=== PATIENT | male | born 1995 | race Caucasian/White ===

== ENCOUNTER → 2019-06-08 12:16 | Outpatient (CLI) | payer BC, SELFPAY ==
[2019-06-08 15:21] LABS: Influenza A - CEPHEID Flu A NEGATIVE (NEGATIVE); Influenza B - CEPHEID Flu B NEGATIVE (NEGATIVE)
[2019-06-10 20:36] LABS: COVID19 Sendout Not Detected (Not Detected)
== END ==
PROVIDERS: Visit Provider Registered Nurse
DX: R68.89 Other general symptoms and signs (principal)
CPT/HCPCS: 87502; 87635

== ENCOUNTER → 2019-11-05 15:50 | Outpatient (CLI) | payer BC, SELFPAY | PROVIDERS: PCP Registered Nurse Diabetes Educator; Visit Provider Physician Assistant | DX: J02.9 Acute pharyngitis, unspecified (principal) | CPT/HCPCS: 87070 ==

== ENCOUNTER → 2020-05-08 09:33 | Outpatient (CLI) | payer OTHER, MEDICAID, SELFPAY ==
[2020-05-08 10:19] LABS: Hematocrit 47.3 % (41-53); Hemoglobin 16.3 g/dL (13.5-17.5); Mean Corpuscular HGB Conc 34.5 % (30-36); Mean Corpuscular Hemoglobin 30.2 PG (26-34); Mean Corpuscular Volume 87.6 fL (80-100); Platelet Count 171 X10^3/uL (150-400); Red Cell Distribution Width 12.4 % (11.6-14.8); White Blood Cell Count 6.8 X10^3/uL (4.5-11.0)
[2020-05-08 10:56] LABS: Alanine Aminotransferase 33 IU/L (<50); Albumin 4.1 g/dL (3.5-5.0); Albumin Globulin Ratio 1.2 (1.0-2.8); Alkaline Phosphatase 67 U/L (38-126); Aspartate Aminotransferase 27 IU/L (17-59); Bilirubin Total 0.7 mg/dL (0.2-1.3); Bilirubin Unconjugated 0.6 mg/dL (0.0-1.1); Cholesterol 161 mg/dL (140-199); Globulin 3.4 g/dL (1.7-4.1); HDL Cholesterol 25 mg/dL (40-60); HEMOLYSIS < 15 (0-50); LDL Cholesterol Calculated 106 mg/dL (<100); Total Protein 7.5 g/dL (6.3-8.2); Triglycerides 151 mg/dL (35-150)
[2020-05-13 05:10] LABS: Percent Free Testosterone 4.82 % (1.50-4.20); Testosterone Free 22.25 ng/dL (5.00-21.00); Testosterone Total 461.7 ng/dL (264.0-916.0)
== END ==
PROVIDERS: PCP Registered Nurse Diabetes Educator; Referring Provider Registered Nurse Diabetes Educator; Visit Provider Registered Nurse Diabetes Educator
DX: F64.0 Transsexualism (principal)
CPT/HCPCS: 36415; 80061; 80076; 84402; 84403; 85027